=== PATIENT | female | born 1980 | race Caucasian/White ===

== ENCOUNTER 2017-12-18 05:46 | Emergency (ER) | payer MEDICAID ==
[~2017-12-18] VITALS: Ht 162.6 cm; Wt 178.0 kg
[2017-12-18] MEDS ORDERED: PROMETHAZINE/DEXTROMETHORPHAN 6.25-15MG/5ML BOTTLE 120ML PO PRN (08:45)
[2017-12-18] MEDS ORDERED: IBUPROFEN 600MG TABLET PO ONE (08:45)
[2017-12-18 12:09] VITALS: BP 111/68
== END 2017-12-18 12:11 | disposition home or self-care (01) ==
LOC: ER 05:46
DX: H66.93 Otitis media, unspecified, bilateral (principal); J06.9 Acute upper respiratory infection, unspecified
CPT/HCPCS: 71045; 81025; 99283